=== PATIENT | male | born 1955 | race Caucasian/White ===

== ENCOUNTER 2020-08-03 22:35 | Emergency (ER) | payer OTHER ==
[~2020-08-03] VITALS: Ht 172.7 cm; Wt 77.0 kg
[2020-08-03] MEDS ORDERED: AUGMENTIN500TAB PO (23:06)
[2020-08-04 00:50] VITALS: BP 160/90
== END 2020-08-04 00:52 | disposition home or self-care (01) | DRG 605 ==
LOC: ED 22:35
DX: S61.451A Open bite of right hand, initial encounter (principal); W54.0XXA Bitten by dog, initial encounter; Y93.K9 Activity, other involving animal care; Y92.009 Unspecified place in unspecified non-institutional (private) residence as the place of occurrence of the external cause

== ENCOUNTER 2025-02-04 14:24 | Emergency (ER) | payer MEDICARE ==
[~2025-02-04] VITALS: Ht 172.7 cm; Wt 82.0 kg
[~2025-02-04 14:24] MED LIST: AUGMENTIN500TAB PO
[2025-02-04 14:30] VITALS: BP 169/114
[2025-02-04] MEDS ORDERED: PREDNISOLONE SO10 MG PO (14:42)
[2025-02-04] MEDS ORDERED: ZANTAC 36010 MG PO (14:42)
[2025-02-04 14:45] VITALS: BP 145/93
[2025-02-04 14:50] VITALS: BP 145/93
[2025-02-04] MEDS ORDERED: PREDNISONE10 MG PO (15:32)
== END 2025-02-04 15:05 | disposition home or self-care (01) ==
LOC: ED 14:24
DX: L50.9 Urticaria, unspecified (principal)